=== PATIENT | male | born 1975 | race Caucasian/White ===

== ENCOUNTER → 2017-06-14 10:03 | Outpatient (REF) | payer BC, SELFPAY ==
[2017-06-14 14:27] LABS: Amphetamine/Metha Screen,Urine Negative ng/mL (<1000); Barbiturates Screen,Urine Negative ng/mL (<200); Benzodiazepines Screen,Urine Negative ng/mL (200); Cannabinoid Screen,Urine Negative ng/mL (<50); Cocaine Screen,Urine Positive ng/g (<300); Methadone Screen,Urine Negative ng/mL (<300); Opiate Screen,Urine Negative ng/mL (<300); Phencyclidine Screen,Urine Negative ng/mL (<25)
== END ==
LOC: LAB 10:03
PROVIDERS: Visit Provider Nurse Practitioner Family
DX: Z79.899 Other long term (current) drug therapy (principal)
CPT/HCPCS: 80305

== ENCOUNTER → 2017-08-15 10:49 | Outpatient (REF) | payer BC, SELFPAY ==
[2017-08-15 18:16] LABS: Amphetamine/Metha Screen,Urine Negative ng/mL (<1000); Barbiturates Screen,Urine Negative ng/mL (<200); Benzodiazepines Screen,Urine Negative ng/mL (200); Cannabinoid Screen,Urine Negative ng/mL (<50); Cocaine Screen,Urine Positive ng/g (<300); Methadone Screen,Urine Negative ng/mL (<300); Opiate Screen,Urine Negative ng/mL (<300); Phencyclidine Screen,Urine Negative ng/mL (<25)
== END ==
LOC: LAB 10:49
PROVIDERS: Visit Provider Nurse Practitioner Family
DX: Z79.899 Other long term (current) drug therapy (principal)
CPT/HCPCS: 80305

== ENCOUNTER → 2018-10-08 18:16 | Outpatient (CLI) | payer OTHER, SELFPAY ==
[2018-10-08 18:54] LABS: Basophils # 0.1 K/mm3 (0-0.2); Eosinophils # 0.8 K/mm3 (0.0-0.4); Eosinophils % 10.7 % (0.1-12.0); Hematocrit 42.1 % (42.0-52.0); Hemoglobin 14.6 g/dL (14.1-18.0); Lymphocytes # 3.6 K/mm3 (0.7-4.5); Lymphocytes % 50.2 % (10-50); Mean Corpuscular HGB Conc 34.7 g/dL (31.8-35.4); Mean Corpuscular Hemoglobin 29.1 pg (27.0-31.2); Mean Corpuscular Volume 83.8 fl (80-94); Mean Platelet Volume 6.8 fl (7.4-10.4); Monocytes # 0.4 K/mm3 (0.1-1.0); Monocytes % 5.2 % (1.7-9.3); Neutrophils # 2.4 K/mm3 (1.8-7.8); Neutrophils % 32.9 % (37.0-80.0); Platelet Count 279 K/mm3 (142-424); Red Blood Count 5.03 M/mm3 (4.60-6.20); Red Cell Distribution Width 14.1 % (11.5-17.5); White Blood Count 7.1 K/mm3 (4.8-10.8)
[2018-10-08 18:57] LABS: INR 1.01 (0.9-1.1); Prothrombin Time 10.5 seconds (9.4-11.8)
[2018-10-08 19:02] LABS: MANUAL DIFFERENTIAL MANUAL DIFFERENTIAL (MANUAL DIFF)
[2018-10-08 19:23] LABS: Alanine Aminotransferase 126 U/L (12-78); Albumin Level 3.9 gm/dL (3.4-5.0); Albumin/Globulin Ratio 1.1 (1.1-1.8); Alkaline Phosphatase 117 U/L (46-116); Anion Gap 13.7 mEq/L (5-15); Aspartate Amino Transferase 62 U/L (15-37); Bilirubin,Total 0.5 mg/dL (0.2-1.0); Blood Urea Nitrogen 9 mg/dL (7-18); Calcium 8.8 mg/dL (8.5-10.1); Carbon Dioxide 27 mmol/L (21.0-32.0); Chloride 103 mmol/L (98-107); Creatinine,Serum 0.83 mg/dL (0.70-1.30); Estimated Glomerular Filt Rate 100 ml/min (>60); GFR (African American) 121 ML/MIN (>60); Globulin 3.6 gm/dl (1.3-3.2); Glucose 115 mg/dL (74-106); Potassium 3.7 mmoL/L (3.5-5.1); Sodium 140 mmol/L (136-145); Total Protein,Serum 7.5 gm/dL (6.4-8.2)
[2018-10-08 19:30] LABS: Erythrocyte Sedimentation Rate 13 mm/hr (0-15)
[2018-10-08 20:55] LABS: C-Reactive Protein < 0.2 mg/L (0.0-0.9)
[2018-10-08 22:34] LABS: Anisocytosis 1+; Eosinophils % 8 % (0-3); Lymphocytes % 57 % (10-50); Monocytes % 1 % (2-9); Neutrophils % 32 % (42-76); Ovalocytes 1+; Platelet Estimate Normal; Total Cells Counted 100
[2018-10-10 07:27] LABS: Hep B Core Ab, Total Negative (Negative); Hepatitis B Surface Antigen Negative (Negative)
[2018-10-10 07:34] LABS: Hep A Ab, Total Negative (Negative); Hepatitis B Surf Ab Quant <3.1 mIU/mL (Immunity>9.9); Hepatitis C Antibody >11.0 s/co ratio (0.0-0.9)
[2018-10-10 18:44] LABS: HIV Screen 4th Generation wRfx Non Reactive (Non Reactive)
[2018-10-15 03:25] LABS: HCV Genotype Charge YES
== END ==
PROVIDERS: Visit Provider Emergency Medicine
DX: R53.83 Other fatigue (principal)
CPT/HCPCS: 36415; 80053; 85007; 85025; 85610; 85651; 86140; 86703; 86704; 86706; 86708; 87340; 87380; 87522; 87902; G0432

== ENCOUNTER → 2019-07-03 17:00 | Outpatient (CLI) | payer OTHER, SELFPAY ==
[2019-07-03 17:45] LABS: Basophils # 0.1 K/mm3 (0-0.2); Basophils % 0.7 % (0.1-2.0); Eosinophils # 0.8 K/mm3 (0.0-0.4); Eosinophils % 9.6 % (0.1-12.0); Hematocrit 46.5 % (42.0-52.0); Hemoglobin 15.1 g/dL (14.1-18.0); Lymphocytes # 3.3 K/mm3 (0.7-4.5); Lymphocytes % 39.2 % (10-50); Mean Corpuscular HGB Conc 32.6 g/dL (31.8-35.4); Mean Corpuscular Hemoglobin 29.7 pg (27.0-31.2); Mean Corpuscular Volume 91.3 fl (80-94); Mean Platelet Volume 9.3 fl (7.4-10.4); Monocytes # 0.5 K/mm3 (0.1-1.0); Monocytes % 5.8 % (1.7-9.3); Neutrophils # 3.8 K/mm3 (1.8-7.8); Neutrophils % 44.6 % (37.0-80.0); Platelet Count 265 K/mm3 (142-424); Red Blood Count 5.09 M/mm3 (4.60-6.20); Red Cell Distribution Width 13.5 % (11.5-17.5); White Blood Count 8.5 K/mm3 (4.8-10.8)
[2019-07-03 18:17] LABS: Chloride 101 mmol/L (98-107); Potassium 3.5 mmoL/L (3.5-5.1); Sodium 140 mmol/L (136-145)
[2019-07-03 18:19] LABS: Blood Urea Nitrogen 10 mg/dl (9-20); Estimated Glomerular Filt Rate 91 ml/min (>60); GFR (African American) 110 ML/MIN (>60)
[2019-07-03 18:20] LABS: Alanine Aminotransferase 80 U/L (12-78); Albumin Level 4.5 g/dl (3.5-5.0); Albumin/Globulin Ratio 1.3 (1.1-1.8); Alkaline Phosphatase 112 U/L (38-126); Anion Gap 14.5 mEq/L (5-15); Aspartate Amino Transferase 64 U/L (17-59); Bilirubin,Total 0.2 mg/dl (0.2-1.3); Calcium 9.5 mg/dl (8.4-10.2); Carbon Dioxide 28 mmol/L (22.0-30.0); Globulin 3.5 g/dL (1.3-3.2); Glucose 120 mg/dl (74-100)
[2019-07-12 17:49] LABS: HCV Genotype Charge YES
[2019-07-14 11:28] LABS: HIV Screen 4th Generation wRfx Non Reactive (Non Reactive); Hepatitis B Surface Antigen Negative (Negative)
[2019-07-14 11:29] LABS: Hep A Ab, IgM Negative (Negative); Hep A Ab, Total Negative (Negative); Hep B Core Ab, Total Negative (Negative); Hep B Surface Ab, Qual Non Reactive (.); Hepatitis C Genotype 3 (.)
== END ==
PROVIDERS: Visit Provider Emergency Medicine
DX: B19.20 Unspecified viral hepatitis C without hepatic coma (principal)
CPT/HCPCS: 80053; 85025; 86703; 86704; 86706; 86708; 87340; 87522; 87902; G0432

== ENCOUNTER → 2019-10-03 11:25 | Outpatient (CLI) | payer OTHER, SELFPAY ==
[2019-10-03 11:48] LABS: Basophils # 0.1 K/mm3 (0-0.2); Basophils % 1.6 % (0.1-2.0); Eosinophils # 0.4 K/mm3 (0.0-0.4); Eosinophils % 6.7 % (0.1-12.0); Hematocrit 41.8 % (42.0-52.0); Hemoglobin 14.2 g/dL (14.1-18.0); Lymphocytes # 2.4 K/mm3 (0.7-4.5); Lymphocytes % 36.8 % (10-50); Mean Corpuscular HGB Conc 34.1 g/dL (31.8-35.4); Mean Corpuscular Hemoglobin 30.8 pg (27.0-31.2); Mean Corpuscular Volume 90.4 fl (80-94); Mean Platelet Volume 7.5 fl (7.4-10.4); Monocytes # 0.3 K/mm3 (0.1-1.0); Monocytes % 4.5 % (1.7-9.3); Neutrophils # 3.2 K/mm3 (1.8-7.8); Neutrophils % 50.4 % (37.0-80.0); Platelet Count 246 K/mm3 (142-424); Red Blood Count 4.62 M/mm3 (4.60-6.20); Red Cell Distribution Width 14.2 % (11.5-17.5); White Blood Count 6.4 K/mm3 (4.8-10.8)
[2019-10-03 11:53] LABS: INR 0.98 (0.9-1.1); Prothrombin Time 10.2 seconds (9.4-11.8)
[2019-10-03 12:16] LABS: Chloride 107 mmol/L (98-107); Sodium 140 mmol/L (136-145)
[2019-10-03 12:17] LABS: Potassium 4.2 mmoL/L (3.5-5.1)
[2019-10-03 12:19] LABS: Alanine Aminotransferase 60 U/L (12-78); Albumin Level 4.2 g/dl (3.5-5.0); Albumin/Globulin Ratio 1.4 (1.1-1.8); Alkaline Phosphatase 102 U/L (38-126); Anion Gap 9.2 mEq/L (5-15); Aspartate Amino Transferase 64 U/L (17-59); Bilirubin,Total 0.5 mg/dl (0.2-1.3); Blood Urea Nitrogen 8 mg/dl (9-20); Calcium 9.2 mg/dl (8.4-10.2); Carbon Dioxide 28 mmol/L (22.0-30.0); Estimated Glomerular Filt Rate 91 ml/min (>60); GFR (African American) 110 ML/MIN (>60); Globulin 2.9 g/dL (1.3-3.2); Glucose 123 mg/dl (74-100); Total Protein,Serum 7.1 g/dl (6.3-8.2)
[2019-10-04 12:17] LABS: HIV Screen 4th Generation wRfx Non Reactive (Non Reactive)
[2019-10-11 15:08] LABS: HCV Genotype Charge YES; Hepatitis C Genotype 3 (.)
== END ==
PROVIDERS: Visit Provider Emergency Medicine
DX: B19.20 Unspecified viral hepatitis C without hepatic coma (principal)
CPT/HCPCS: 36415; 80053; 85025; 85610; 86703; 87522; 87902; G0432

== ENCOUNTER → 2019-12-21 09:40 | Outpatient (CLI) | payer OTHER, SELFPAY ==
--- NOTE | 2019-12-21 09:41 | CT_ITS ---
PROCEDURE: CT PELVIS W CON CLINICAL INDICATION: eval hernia Left inguinal hernia, pain COMPARISON: No exams were available for comparison TECHNIQUE: Axial images obtained with sagittal and coronal reformats. All CT scans at the facility use one or more dose reduction, viz: automated exposure control, ma/kV adjustment per patient size (including targeted exams where dose is matched to indication, i.e. head), or iterative reconstruction technique. FINDINGS: No pelvic mass or abnormal fluid collection is evident. No evidence abdominal wall hernia. No acute bony findings. No adenopathy. There are few small nodes in the inguinal region on both sides. IMPRESSION: Negative CT the pelvis Dictated b Gabe Phan MD 12/22/2019 09:19 Gabe Phan MD in [facility] 12/22/2019 09:19
== END ==
PROVIDERS: PCP Emergency Medicine; Visit Provider Surgery
DX: K40.90 Unilateral inguinal hernia, without obstruction or gangrene, not specified as recurrent (principal)
CPT/HCPCS: 72193; Q9967

== ENCOUNTER → 2020-01-08 11:10 | Outpatient (CLI) | payer OTHER, SELFPAY ==
--- NOTE | 2020-01-08 11:13 | US_ITS ---
PROCEDURE: US TESTICULAR CLINICAL INDICATION: Bilateral testicular pain COMPARISON: No exams were available for comparison FINDINGS: Right testicle measures 4 x 1.7 x 3 cm. Left testicle measures 3.8 x 2 x 2.8 cm. No mass or evident. There is bilateral testicular blood flow. No hydrocele. There is a small epididymal cyst in the upper hip this on the right at 6 x 4 mm. Contains a small septation. No varicocele. IMPRESSION: Small septated right epididymal cyst otherwise negative testicular ultrasound Dictated by: Gabe Phan MD 01/08/2020 14:01 Gabe Phan MD in [facility] 01/08/2020 14:01
== END ==
PROVIDERS: PCP Emergency Medicine; Visit Provider Emergency Medicine
DX: R10.31 Right lower quadrant pain (principal); R10.32 Left lower quadrant pain
CPT/HCPCS: 76870

== ENCOUNTER 2020-06-09 20:47 | Emergency (ER) | payer OTHER, SELFPAY ==
[2020-06-09 20:55] VITALS: BP 149/78; PULSE 90; RESP 16; TEMP 36.8; O2SAT 98; BMI 26.4
--- NOTE | 2020-06-09 21:01 | XR_ITS ---
PROCEDURE: XR CERVICAL SPINE 3V CLINICAL INDICATION: PAIN Neck pain and swelling COMPARISON: CT CT CERVICAL SPINE WO CON from 03/30/2019 FINDINGS: There are postsurgical changes present with an anterior bone plate at C4 through C7. Kyphosis is present at C4-C5. A tubular cage device is present in vertebral body at C5-C6 and C7. exuberant osteophyte noted and C3-C4 anteriorly. No malalignment and no significant change from the previous CT scan 03/30/2019. no prevertebral soft tissue swelling IMPRESSION: Postsurgical changes with kyphosis as described above. No malalignment or acute fracture apparent Dictated by: Gabe Phan MD 06/10/2020 05:56 Gabe Phan MD in [facility] 06/10/2020 05:56
[2020-06-09 21:06] VITALS: BP 149/74; PULSE 90; RESP 16; TEMP 36.8; O2SAT 98; BMI 25.7
--- NOTE | 2020-06-09 21:14 | HMH.EDUTC ---
[facility] [place] Condition [place] Dis[place]: Good Time of Disposition: :28 <Kelly Tan - Last Filed: 06/09/20 22:26> Condition on Discharge: Good <Dale Bentley - Last Filed: 06/10/20 00:53> Clinical Impression: Neck pain Disposition: Still a Patient Additional Instructions: Please take Flexeril as prescribed. Do not operate heavy machinery or drink alcohol taking this medicine. Use ice on affected area. Return immediately if any new or worsening symptoms. Prescriptions: Cyclobenzaprine HCl [Flexeril 10mg tablet] 5 mg PO TID PRN 30 Days #12 tab PRN Reason: neck pain Prescription Printed Referrals: Kingsley Aponte MD [Primary Care Provider] - Medical Decision Making - Abhay Inquiry Pt receiving controlled substance: No Abhay was queried for this patient: No <Kelly Tan - Last Filed: 06/09/20 22:26> - Lab Data Result diagrams: 06/09/20 23:00 06/09/20 23:00 <Dale Bentley - Last Filed: 06/10/20 00:53> Vital Signs: 06/09/20 20:55 06/09/20 21:06 06/09/20 23:00 Temperature 98.3 F 98.3 F Temperature Source Oral Oral Pulse Rate [Right] 90 90 88 Respiratory Rate 16 16 17 Blood Pressure [Left Arm] 149/78 H 149/74 H 142/71 H Blood Pressure Mean [Left Arm] 101 99 94 Blood Pressure Source [Left Arm] Automatic Cuff Automatic Cuff Automatic Cuff Blood Pressure Position [Left Arm] Sitting Sitting Supine 02 Sat by Pulse Oximetry 98 98 98 Oxygen Delivery Method Room Air Room Air Room Air - Lab Data Lab Results 06/09/20 23:00: WBC 7.6, RBC 5.47, Hgb 16.9, Hct 48.8, MCV 89.2, MCH 31.0, MCHC 34.7, RDW 13.7, Plt Count 255, MPV 7.3 L, Neut % (Auto) 50.1, Lymph % (Auto) 34.5, [place] % (Auto) 5.9, Eos % (Auto) 8.9, Baso % (Auto) 0.6, Neut # (Auto) 3.8, Lymph # (Auto) 2.6, [place] # (Auto) 0.5, Eos # (Auto) 0.7 H, Baso # (Auto) 0.0 06/09/20 23:00: Sodium 139, Potassium 3.9, Chloride 99, Carbon Dioxide 34 H, Anion Gap 9.9, BUN 9, Creatinine 0.90, Estimated Creat Clear 127, Estimated GFR 90, Est GFR ( Amer) 109, Glucose 110 H, Calcium 9.2 Orders (Tests/Meds): ED MEDICATIONS Discontinued Medications Generic Name Dose Route Start Last Admin Trade Name Frexiomy PRN Reason Stop Dose Admin Iopamidol 75 ml 06/10/20 00:38 06/09/20 23:45 Iopamidol-370 (76%);100ml Bottle IV 06/10/20 00:39 75 ml ONCE ONE Administration Sodium Chloride 10 ml 06/10/20 00:38 06/09/20 23:45 Sodium Chloride 0.9% 10ml Syr (Rad Only) IV 06/10/20 00:39 10 ml ONCE ONE Administration ORDERS Category Date Time Status CT cervical spine wo/w con Stat Cat Scan 06/09/20 22:28 Taken XR cervical spine 3V Stat Exams 06/09/20 21:01 Taken Medical Decision Narrative: Discussed with patient and recommended Toradol injection and muscle relaxer may help with pain and patient declined multiple times patient sitting on exam table talking with family Spoke with ER Physician Dr Salgado and he viewed xray and requested to have VRAD view and provide reading for xray awaiting xray reading Xray Vrad reading back, and discussed with Dr Salgado, After reading back for VRAD, patient is now requesting to be transferred to the ED for further treatment and evaluation, Discussed with Dr Salgado and he came to [facility] spoke with patient, patient transferred to the ED for CT scan and further evaluation, patient awaiting room assignment (Kelly Tan) CT with contrast obtained and demonstrates no abscess or any other bony injury/malalignment. Patient given Flexeril p.o. with improvement in pain. I do believe soft tissue injury is more than likely causing his pain. Patient prescribed Flexeril instructed not to operate heavy machinery or drink alcohol or take this medicine. He is discharged in stable condition with strict return precautions. Assessment: Acute on chronic neck pain Disposition: Home with follow-up (Dale Bentley) [facility] [place] - General Mode of Arrival: Ambulatory Source of Information: Patient Limitatio
--- NOTE | 2020-06-09 22:28 | CT_ITS ---
PROCEDURE: CT CERVICAL SPINE WO/W CON CLINICAL INDICATION: neck pain. previous surgery There has been previous extensive surgery from C4 C5 and C6 with kyphosis noted at C4-C5 with anterior bone plate at C4-C5 and C6 and a central longitudinal tubular cage device. There is good alignment. COMPARISON: CT CT CERVICAL SPINE WO CON from 03/30/2019 CR XR CERVICAL SPINE 3V from 06/09/2020 TECHNIQUE: Axial images obtained with sagittal and coronal reformats. All CT scans at the facility use one or more dose reduction, viz: automated exposure control, ma/kV adjustment per patient size (including targeted exams where dose is matched to indication, i.e. head), or iterative reconstruction technique. Axial spiral CT scanning performed of the cervical spine beginning at the base of the skull and continuing to the upper T-spine. 3-D multiplanar reconstruction with 3-D manipulation of volumetric data set in image rendering was completed by the radiologist and/or technologist with the supervision of the radiologist on independent workstation. FINDINGS: There has been previous surgery with anterior bone plate at C4, C5, C6, and C7. There is kyphosis at C4-C5 level. There is an anterior bone plate from C4-C7 with a tubular fixation device within the vertebral bodies along the inferior aspect of C4, and through C5-C6 and C7. This is similar compared to the previous exam. No acute fracture or dislocation is evident. Borderline narrowing of the canal is present at C6-C7 with bilateral foraminal narrowing at that level. Post enhanced images show no evidence of abnormal enhancement. Prominent anterior osteophyte is present at C3-C4 no evidence of osteomyelitis or paravertebral abscess. Scattered small nodes are present in the neck. No acute finding in the lung apices. Incidental note is made of mild mucosal thickening of the maxillary sinuses with a small air-fluid level in the left maxillary sinus as well as mucosal thickening of the ethmoid sinuses. IMPRESSION: 1. No acute finding. 2. Chronic and postsurgical changes as detailed above Dictated by: Gabe Phan MD 06/10/2020 09:20 Gabe Phan MD in [place] 06/10/2020 09:20
[2020-06-09 23:00] VITALS: BP 142/71; PULSE 88; RESP 17; O2SAT 98
[2020-06-09 23:22] LABS: Basophils % 0.6 % (0.1-2.0); Eosinophils # 0.7 K/mm3 (0.0-0.4); Eosinophils % 8.9 % (0.1-12.0); Hematocrit 48.8 % (42.0-52.0); Hemoglobin 16.9 g/dL (14.1-18.0); Lymphocytes # 2.6 K/mm3 (0.7-4.5); Lymphocytes % 34.5 % (10-50); Mean Corpuscular HGB Conc 34.7 g/dL (31.8-35.4); Mean Corpuscular Volume 89.2 fl (80-94); Mean Platelet Volume 7.3 fl (7.4-10.4); Monocytes # 0.5 K/mm3 (0.1-1.0); Monocytes % 5.9 % (1.7-9.3); Neutrophils # 3.8 K/mm3 (1.8-7.8); Neutrophils % 50.1 % (37.0-80.0); Platelet Count 255 K/mm3 (142-424); Red Blood Count 5.47 M/mm3 (4.60-6.20); Red Cell Distribution Width 13.7 % (11.5-17.5); White Blood Count 7.6 K/mm3 (4.8-10.8)
[2020-06-09 23:27] LABS: Chloride 99 mmol/L (98-107)
[2020-06-09 23:28] LABS: Potassium 3.9 mmoL/L (3.5-5.1); Sodium 139 mmol/L (136-145)
[2020-06-09 23:30] LABS: Blood Urea Nitrogen 9 mg/dl (9-20); Creatinine Clearance Estimated 127 mL/min (50-200); Estimated Glomerular Filt Rate 90 ml/min (>60); GFR (African American) 109 ML/MIN (>60)
[2020-06-09 23:31] LABS: Anion Gap 9.9 mEq/L (5-15); Calcium 9.2 mg/dl (8.4-10.2); Carbon Dioxide 34 mmol/L (22.0-30.0); Glucose 110 mg/dl (74-100)
[2020-06-10 00:55] VITALS: BP 150/72; PULSE 81; RESP 16; TEMP 36.7; O2SAT 98
== END 2020-06-10 00:57 | disposition still patient (30) ==
LOC: UTC 21:03 → ER 22:39
PROVIDERS: Emergency Provider Emergency Medicine; PCP Emergency Medicine
DX: M54.2 Cervicalgia (principal); F41.8 Other specified anxiety disorders; I10 Essential (primary) hypertension; F17.210 Nicotine dependence, cigarettes, uncomplicated; Z79.899 Other long term (current) drug therapy
CPT/HCPCS: 72040; 72127; 80048; 85025; 99282; Q9967

== ENCOUNTER → 2020-06-24 17:43 | Outpatient (CLI) | payer OTHER, SELFPAY ==
[2020-06-24 18:25] LABS: Amphetamine/Metha Screen,Urine Negative ng/ml (<1000)
[2020-06-24 18:26] LABS: Barbiturates Screen,Urine Negative ng/ml (<200); Benzodiazepines Screen,Urine Negative ng/ml (<200)
[2020-06-24 18:27] LABS: Cannabinoid Screen,Urine Negative ng/ml (<50); Cocaine Screen,Urine Negative ng/ml (<300)
[2020-06-24 18:28] LABS: Methadone Screen,Urine Negative ng/ml (<300)
[2020-06-24 18:29] LABS: Opiate Screen,Urine Negative ng/ml (<300)
[2020-06-24 18:30] LABS: Phencyclidine Screen,Urine Negative ng/ml (<25)
== END ==
PROVIDERS: Visit Provider Emergency Medicine
DX: Z79.899 Other long term (current) drug therapy (principal)
CPT/HCPCS: 80305

== ENCOUNTER → 2020-09-20 16:39 | Outpatient (CLI) | payer OTHER, SELFPAY ==
[2020-09-20 18:23] LABS: Amphetamine/Metha Screen,Urine Positive ng/ml (<1000); Barbiturates Screen,Urine Negative ng/ml (<200)
[2020-09-20 18:24] LABS: Benzodiazepines Screen,Urine Negative ng/ml (<200)
[2020-09-20 18:25] LABS: Cannabinoid Screen,Urine Negative ng/ml (<50); Cocaine Screen,Urine Negative ng/ml (<300)
[2020-09-20 18:26] LABS: Methadone Screen,Urine Negative ng/ml (<300); Opiate Screen,Urine Negative ng/ml (<300)
[2020-09-20 18:27] LABS: Phencyclidine Screen,Urine Negative ng/ml (<25)
== END ==
PROVIDERS: Visit Provider Emergency Medicine
DX: Z79.899 Other long term (current) drug therapy (principal)
CPT/HCPCS: 80305

== ENCOUNTER → 2020-11-07 14:05 | Outpatient (CLI) | payer OTHER, SELFPAY ==
[2020-11-07 17:23] LABS: Amphetamine/Metha Screen,Urine Negative ng/ml (<1000)
[2020-11-07 17:24] LABS: Barbiturates Screen,Urine Negative ng/ml (<200); Benzodiazepines Screen,Urine Negative ng/ml (<200)
[2020-11-07 17:25] LABS: Cannabinoid Screen,Urine Negative ng/ml (<50); Cocaine Screen,Urine Negative ng/ml (<300)
[2020-11-07 17:26] LABS: Methadone Screen,Urine Negative ng/ml (<300)
[2020-11-07 17:27] LABS: Opiate Screen,Urine Negative ng/ml (<300); Phencyclidine Screen,Urine Negative ng/ml (<25)
== END ==
PROVIDERS: Visit Provider Emergency Medicine
DX: Z79.899 Other long term (current) drug therapy (principal)
CPT/HCPCS: 80305

== ENCOUNTER → 2021-02-06 17:52 | Outpatient (CLI) | payer OTHER, SELFPAY ==
[2021-02-06 19:41] LABS: Amphetamine/Metha Screen,Urine Negative ng/ml (<1000)
[2021-02-06 19:42] LABS: Barbiturates Screen,Urine Negative ng/ml (<200)
[2021-02-06 19:44] LABS: Benzodiazepines Screen,Urine Negative ng/ml (<200); Cannabinoid Screen,Urine Negative ng/ml (<50)
[2021-02-06 19:45] LABS: Cocaine Screen,Urine Negative ng/ml (<300); Methadone Screen,Urine Negative ng/ml (<300)
[2021-02-06 19:46] LABS: Opiate Screen,Urine Negative ng/ml (<300)
[2021-02-06 19:47] LABS: Phencyclidine Screen,Urine Negative ng/ml (<25)
== END ==
PROVIDERS: Visit Provider Emergency Medicine
DX: Z79.899 Other long term (current) drug therapy (principal)
CPT/HCPCS: 80305

== ENCOUNTER → 2022-06-01 14:19 | Outpatient (CLI) | payer OTHER, SELFPAY ==
--- NOTE | 2022-06-01 14:20 | CA_ITS ---
APPROVED REPORT EXAM: Comprehensive 2D, Doppler, and color-flow Echocardiogram Residential Counselor: Renetta Gallego RVT Ht: 6 ft 0 in Wt: 188lbs BSA: 2.08 BP: 145/94 mmHg Indications: CP,ABN EKG,DIZZINESS,SMOKER 2D Dimensions LVOT 2.02 cm (M/F) 1.5-2.5 LA Volume 35.00 mL LA Volume Index 16.83 mL/m2 (M/F) 16-34 M-Mode Dimensions RVDd 2.51 cm (0.9-2.6) LA Diam 4.10 cm (1.9-4.0) LVDd 4.45 cm (3.5-5.7) Ao Diam 3.39 cm (2.0-3.7) LVDs 2.70 cm (3.5-5.7) IVSd 0.57 cm (0.6-1.1) PWd 0.68 cm (0.6-1.1) EF (Teich) 70.00% FS 39.30% EDV (Teich) 90.10 mL TAPSE 2.87 (<1.7) ESV (Teich) 27.00 mL LV Diastology E Decel Time 150.00 (160-240 msec) E/A Ratio 1.4 MED E' 8.60 (< 7 cm/sec) E'/MED E' Ratio 8.08 (>14) LAT E' 12.40 (<10 cm/sec) E/LAT E' Ratio 5.60 (>14) Aortic Valve AO Peak GR. 5.80 mmHg Mitral Valve MV E Max Yunior. 69.00 (40-130 cm/s) MV A Velocity 50.00 (40-130 cm/s) E/A Ratio 1.39 MV Decel. Time 150.00 (160-240 ms) MV PHT 44.00 ms Pulmonary Valve PV Peak Velocity 85.00 (50-150 cm/s) Tricuspid Valve TR P. Velocity 156.00 cm/s RAP Estimate 10.00 mmHg RVSP 19.70 mmHg Left Ventricle Left atrium is mildly enlarged, left ventricle is normal size, mild concentric left ventricular hypertrophy, estimated ejection fraction 55% with no regional wall motion abnormality, diastolic parameters are inconclusive. Right Ventricle Right atrium and right ventricle are mildly enlarged with normal contractility. Aortic Valve Aortic valve is minimally thickened and fibrosed there is no aortic stenosis aortic insufficiency. Mitral Valve Mitral valve is grossly normal, there is trace mitral regurgitation. Tricuspid Valve Tricuspid valve grossly normal, there is trace tricuspid regurgitation, tricuspid regurgitation jet velocity is inadequate for calculation of the right ventricular systolic pressure. Pulmonic Valve Pulmonic valve is poorly visualized. Great Vessels Aortic root is normal size. Inferior vena cava is normal size with normal inspiratory collapse. Pericardium No significant pericardial effusion noted. Conclusion 1. Mild biatrial enlargement, normal left ventricular size, mild concentric left ventricular hypertrophy, estimated ejection fraction 55% with no regional wall motion abnormality, diastolic parameters are inconclusive. 2. Trace mitral and tricuspid regurgitation. 3. No significant pericardial effusion. 4. Inferior vena cava is normal size with normal inspiratory collapse. Electronically signed by : Chao Velez MD 06/01/2022 16:44:00
--- NOTE | 2022-06-01 15:01 | CA_ITS ---
APPROVED REPORT Exam: Exercise Treadmill Technologist: Hilary Villanueva, Ht: 6 ft 0 in Wt: 188 lbs BSA: 2.08 m2 HR: 59 bpm BP: 139/80 mmHg Medical History Medications: Omeprazole,,,,, Gabapentin,,,,, Suboxone,,,,, CetIRIZINE,,,,, Metoprolol Succinate ER,,,,, Stress Test Details Test: Mk HR Resting HR: 64 bpm Max Heart Rate (APMHR): 171 bpm Max HR Achieved: 122 bpm Target HR (85% APMHR): 145 bpm % of APMHR: 71 Recovery HR: 73 bpm BP Resting BP: 133/91 mmHg Max BP: 162/90 mmHg Recovery BP: 132.0/83.0 mmHg ECG Resting ECG: SR Clinical Exercise duration: 09:29 min Highest Stage Achieved: Exercise capacity: 10.1 METs Stress ECG Conclusion Max HR: 122 Test stopped due to: SOA & fatigue Symptoms: SOA w/ peak exercise. No chest pain Arrhythmias/Ectopy: none Resting electrocardiogram shows sinus rhythm, with exercise there is less than 1.[address] segment depression noted from the baseline EKG. The EKG portion of the exercise treadmill stress test is nondiagnostic as patient did not achieve the target heart rate, however a 10.1 METs of workload there was no ischemic ST-T changes seen. Test Summary REST . . . . . . . Sitting REST . . . . . . . Standing REST . . . . . . . Sitting REST . . . . . . . Standing REST 09:24 0.0 0.0 64 . 133/ 91 . . Stage 1 01:00 10.0 1.7 87 . . . . Stage 1 02:00 10.0 1.7 93 . . . . Stage 1 03:00 10.0 1.7 93 . 139/ 78 . . Stage 2 01:00 12.0 2.5 102 . . . . Stage 2 02:00 12.0 2.5 103 . . . . Stage 2 03:00 12.0 2.5 107 . 160/ 82 . . Stage 3 01:00 14.0 3.4 112 . . . . Stage 3 02:00 14.0 3.4 115 . . . . Stage 3 03:00 14.0 3.4 116 . 162/ 90 . . Stage 4 00:29 16.0 4.2 122 . . . Stop exercise at 09:29 RECOVERY 01:00 0.0 0.0 97 . . . . RECOVERY 02:00 0.0 0.0 77 . . . . RECOVERY 03:00 0.0 0.0 74 . 162/ 93 . . RECOVERY 04:00 0.0 0.0 71 . 159/ 92 . . RECOVERY 04:48 0.0 0.0 72 . 132/ 83 . . Electronically signed by : Chao Velez MD 06/01/2022 17:27:28
== END ==
PROVIDERS: PCP Emergency Medicine; Visit Provider Physician Assistant
DX: R06.00 Dyspnea, unspecified (principal); R07.9 Chest pain, unspecified; R42 Dizziness and giddiness; R94.31 Abnormal electrocardiogram [ECG] [EKG]
CPT/HCPCS: 93017; 93306

== ENCOUNTER → 2022-08-09 12:18 | Day surgery (SDC) | payer OTHER, SELFPAY ==
[2022-08-06 09:49] VITALS: BMI 25.7
[2022-08-09 12:59] VITALS: BP 129/78; PULSE 77; RESP 18; TEMP 36.6; O2SAT 98
[2022-08-09 13:56] VITALS: O2SAT 98
--- NOTE | 2022-08-09 14:09 | HMH.SCOPE ---
Procedure: Date: 08/09/22 Patient Date of :: 1975 Procedure Performed:: Screening Colonoscopy Indications:: Family history of colon cancer Performing Provider:: Thomas Caro MD Referring Provider:: Kingsley Aponte MD Sedation:: Propofol Procedure:: After placing the patient in the left lateral decubitus position, the colonoscopy was gently inserted into the rectum and under direct visualization advanced to the cecum which was identified by transillumination in the right lower quadrant, identification of the ileocecal valve, appendiceal orifice, and cecal strap. Color, texture, mucosa, and anatomy of the colon were carefully examined with the scope. Findings:: Anal canal: normal Rectum: normal Sigmoid colon: normal without polyps or inflammatory changes Descending colon: normal without polyps or inflammatory changes Splenic flexure: normal Transverse colon: normal without polyps or inflammatory changes Hepatic flexure: normal Ascending colon: normal without polyps or inflammatory changes Cecum: normal Terminal ileum: not visualized Impression: Normal colonoscopy Recommendations:: Follow up examination in about FIVE years or so, sooner if clinically indicated in view of family history. Complications:: None Estimated blood obtained (mL): 0
[2022-08-09 14:15] VITALS: BP 92/68; PULSE 84; RESP 17; O2SAT 99
[2022-08-09 14:25] VITALS: BP 136/84; PULSE 74; RESP 18; O2SAT 98
[2022-08-09 14:45] VITALS: BP 132/74; PULSE 76; RESP 17; O2SAT 99
--- NOTE | 2022-08-09 15:14 | P.PN_ITS ---
[facility] Disclaimer: The information contained in this section may have been updated after the patient was seen, as this information can be updated by other users. Medical History Abnormal electrocardiogram [ECG] [EKG] Chest pain Dizziness Dyspnea Low back pain Refill clinic medication management patient Surgical History (Updated 08/06/22 @ 09:47 by Norma Braden RN) Hx of neck surgery Family History (Updated 08/06/22 @ 09:47 by Norma Braden RN) Other Family history of cancer Family history of diabetes mellitus type II Family history of hypertension Family history of stroke Social History (Updated 08/06/22 @ 09:47 by Norma Braden RN) Smoking Status: Current every day smoker tobacco type: cigarettes packs per day: 1 pack-years: 33 alcohol intake: current substance use type: former substance user and opiates current occupational status: employed Travel in the last 8 weeks: None household members: spouse and family housing: house marital status: education level: high school caffeine: Yes special guerita needs: No agree to transfusion: No do you feel safe at home: Yes victim of physical abuse: No victim of emotional abuse: No victim of sexual abuse: No would you like helpful sources: No [facility] Anesthesia Checklist Patient Identification Patient Identification: Arm Band and Family Structural Data Admitted From: Home Planned Operative Procedure/s: COLONOSCOPY Consent for Planned Operative Procedure(s) Verified: Yes Verified Documents: Surgical Consent and History and Physical NPO Status Verified Time NPO: 00:00 Additional verifications Patient : No Anesthesia Reactions: No Hx Blood Transfusions: No Cephalosporin Allergy: No Previous Colonoscopy: No Airway Assessment C-Spine Mobility Assessed: Yes TMJ Mobility Assessed: Yes Dentition: Edentulous Neurological Assessment Level of Consciousness: Awake, Alert, Appropriate and Follows Commands Hx Seizures: No Numbness or tingling in extremities: No Anesthesia Plan Anesthesia Risk discussed: Yes ASA Class: II Anesthesia Type: MAC Preoperative Comments Pre-Operative Comments: Hypertension. Hep C. Screening. On Seboxin.
== END | disposition home or self-care (01) ==
PROVIDERS: PCP Emergency Medicine; Visit Provider Internal Medicine Gastroenterology
PROC: 0DJD8ZZ Inspection of Lower Intestinal Tract, Via Natural or Artificial Opening Endoscopic (ICD-10-PCS; CPT 45378; principal; 2022-08-09 13:30)
DX: Z12.11 Encounter for screening for malignant neoplasm of colon (principal); Z80.0 Family history of malignant neoplasm of digestive organs; F17.210 Nicotine dependence, cigarettes, uncomplicated; Z79.899 Other long term (current) drug therapy
CPT/HCPCS: 45378

== ENCOUNTER → 2023-01-30 10:14 | Outpatient (CLI) | payer OTHER, SELFPAY ==
[2023-01-09 17:53] LABS: Amphetamine/Metha Screen,Urine Negative ng/ml (<1000); Barbiturates Screen,Urine Negative ng/ml (<200)
[2023-01-09 17:54] LABS: Benzodiazepines Screen,Urine Negative ng/ml (<200)
[2023-01-09 17:55] LABS: Cannabinoid Screen,Urine Negative ng/ml (<50); Cocaine Screen,Urine Negative ng/ml (<300)
[2023-01-09 17:56] LABS: Methadone Screen,Urine Negative ng/ml (<300)
[2023-01-09 17:57] LABS: Phencyclidine Screen,Urine Negative ng/ml (<25)
[2023-01-09 18:00] LABS: Opiate Screen,Urine Negative ng/ml (<300)
== END ==
PROVIDERS: PCP Emergency Medicine; Visit Provider Emergency Medicine
DX: Z79.899 Other long term (current) drug therapy (principal)
CPT/HCPCS: 80305

== ENCOUNTER → 2023-04-02 07:34 | Outpatient (CLI) | payer OTHER, SELFPAY ==
[2023-04-02 22:14] LABS: Amphetamine/Metha Screen,Urine Negative ng/ml (<1000)
[2023-04-02 22:15] LABS: Barbiturates Screen,Urine Negative ng/ml (<200)
[2023-04-02 22:16] LABS: Benzodiazepines Screen,Urine Negative ng/ml (<200); Cannabinoid Screen,Urine Negative ng/ml (<50)
[2023-04-02 22:17] LABS: Cocaine Screen,Urine Negative ng/ml (<300)
[2023-04-02 22:18] LABS: Methadone Screen,Urine Negative ng/ml (<300); Opiate Screen,Urine Negative ng/ml (<300)
[2023-04-02 22:19] LABS: Phencyclidine Screen,Urine Negative ng/ml (<25)
== END ==
PROVIDERS: PCP Emergency Medicine; Visit Provider Emergency Medicine
DX: G62.9 Polyneuropathy, unspecified (principal); Z79.899 Other long term (current) drug therapy
CPT/HCPCS: 80305

== ENCOUNTER 2023-07-08 12:06 | Outpatient (CLI) | payer OTHER, SELFPAY ==
[2023-07-08 12:36] LABS: Hemoglobin A1C 5.3 % (4.0-6.0)
[2023-07-08 12:41] LABS: Basophils % 0.3 % (0.1-2.0); Eosinophils # 0.4 K/mm3 (0.0-0.4); Eosinophils % 5.8 % (0.1-12.0); Hematocrit 43.7 % (42.0-52.0); Hemoglobin 14.4 g/dL (14.1-18.0); Mean Corpuscular HGB Conc 32.9 g/dL (31.8-35.4); Mean Corpuscular Volume 94.2 fl (80-94); Mean Platelet Volume 8.2 fl (7.4-10.4); Monocytes # 0.4 K/mm3 (0.1-1.0); Monocytes % 6.6 % (1.7-9.3); Neutrophils # 3.7 K/mm3 (1.8-7.8); Neutrophils % 56.3 % (37.0-80.0); Platelet Count 208 K/mm3 (142-424); Red Blood Count 4.64 M/mm3 (4.60-6.20); Red Cell Distribution Width 13.5 % (11.5-17.5); White Blood Count 6.5 K/mm3 (4.8-10.8)
[2023-07-08 13:02] LABS: Alanine Aminotransferase 49 U/L (12-78); Albumin/Globulin Ratio 1.4 (1.1-1.8); Alkaline Phosphatase 122 U/L (38-126); Anion Gap 10.8 mEq/L (5-15); Aspartate Amino Transferase 45 U/L (17-59); Bilirubin,Total 0.4 mg/dl (0.2-1.3); Blood Urea Nitrogen 8 mg/dl (9-20); Carbon Dioxide 26 mmol/L (22.0-30.0); Chloride 107 mmol/L (98-107); Chol/HDL Ratio 4.3 (1-3.5); Cholesterol 163 mg/dl (140-200); Estimated Glomerular Filt Rate 119 ml/min (>60); GFR (African American) 144 ML/MIN (>60); Globulin 2.9 g/dL (1.3-3.2); Glucose 105 mg/dl (74-100); HDL Cholesterol 38 mg/dl (40-60); Potassium 3.8 mmoL/L (3.5-5.1); Sodium 140 mmol/L (136-145); Total Protein,Serum 6.9 g/dl (6.3-8.2); Triglycerides 127 mg/dl (30-150); VLDL Cholesterol 25 mg/dL (0-40)
[2023-07-08 13:15] LABS: Direct LDL Cholesterol 84.01 mg/dL (100-129)
[2023-07-08 13:33] LABS: Thyroid Stimulating Hormone 1.78 uIU/mL (0.465-4.68)
[2023-07-08 13:52] LABS: Vitamin B12 688 pg/mL (239-931)
== END 2023-07-08 23:59 ==
LOC: LAB.DROPOF 12:07
PROVIDERS: PCP Family Medicine; Visit Provider Family Medicine
DX: G62.89 Other specified polyneuropathies (principal); B19.20 Unspecified viral hepatitis C without hepatic coma; E66.3 Overweight; Z68.25 Body mass index [BMI] 25.0-25.9, adult; Z79.899 Other long term (current) drug therapy
CPT/HCPCS: 80053; 80061; 82306; 82607; 83036; 84443; 85025

== ENCOUNTER 2023-12-05 14:56 | Emergency (ER) | payer BC, SELFPAY ==
[2023-12-05] VITALS (8 sets, daily range): BP systolic 118–199; BP diastolic 76–114; PULSE 63–92; RESP 18–19; TEMP 36.6–36.7; O2SAT 95–99; BMI 26.4
--- NOTE | 2023-12-05 15:04 | ECG_ITS ---
APPROVED REPORT Exam: Resting ECG HR:62 bpm ECG Measurements Heart Rate 62 AXES IL 208 P 73 QRSd 87 QRS 25 QT 435 T 56 QTc 441 Conclusion SINUS RHYTHM POSSIBLE RIGHT VENTRICULAR CONDUCTION DELAY [RSR (QR) IN V1/V2] Electronically signed by : SALOME LOBO, 12/05/2023 22:08:12
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
[2023-12-05 15:10] LABS: Coronavirus 19, PCR Not Detected (NotDetected); Influenza A, PCR Not Detected (NotDetected); Influenza B, PCR Not Detected (NotDetected)
--- NOTE | 2023-12-05 15:11 | CT_ITS ---
FINAL REPORT TECHNIQUE: Thin section axial CT with contrast with multiplanar reconstruction This study was performed with techniques to keep radiation doses as low as reasonably achievable, (ALARA). Individualized dose reduction techniques using automated exposure control or adjustment of mA and/or kV according to the patient''s size were employed. CLINICAL HISTORY: Cough and shortness of breath x2 weeks COMPARISON: None FINDINGS: Pulmonary vessels enhance in normal fashion without evidence of embolism. Thoracic aorta shows no dissection or aneurysm. Fine nodular densities throughout the greater part of the lower lobes is most suggestive of bronchiolitis. There is no significant pleural effusion. There is no significant pericardial effusion. There is mild right hilar adenopathy. Minimal prevascular adenopathy is noted. Limited images of the upper abdomen demonstrate fatty infiltration of the liver. IMPRESSION: No evidence of pulmonary embolism. Extensive bronchopneumonia/bronchiolitis. Recommend CT follow-up in 2-3 months. Reviewed, Interpreted and Dictated by Sandeep Guzman MD Transcribed by Cyndi Mosqueda Authenticated and . [facility]
--- NOTE | 2023-12-05 15:16 | PC.NURSE ---
NOTIFIED RESP OF VBG AMD GREEN TUBE WAS IN LAB
[2023-12-05 15:22] LABS: VBG Base Excess 3.8 mmol/L (-2.4-2.3); VBG HCO3 28.8 mmol/L (23-30); VBG Oxygen Saturation 82.8 % (50-70); VBG PCO2 49.4 mmol/L (35-51); VBG PH 7.38 mmol/L (7.31-7.41); VBG PO2 47.8 mmol/L (28-40); VBG Total CO2 30.3 mmol/L (23-27)
[2023-12-05 15:27] LABS: Lactate Venous 2.5 mmol/L (0.4-2.0)
[2023-12-05 15:28] LABS: Basophils # 0.1 K/mm3 (0-0.2); Basophils % 0.6 % (0.1-2.0); Eosinophils # 0.2 K/mm3 (0.0-0.4); Hematocrit 46.8 % (42.0-52.0); Hemoglobin 15.7 g/dL (14.1-18.0); Lymphocytes # 1.5 K/mm3 (0.7-4.5); Lymphocytes % 15.2 % (10-50); Mean Corpuscular HGB Conc 33.7 g/dL (31.8-35.4); Mean Corpuscular Hemoglobin 31.4 pg (27.0-31.2); Mean Corpuscular Volume 93.3 fl (80-94); Mean Platelet Volume 7.7 fl (7.4-10.4); Monocytes # 0.6 K/mm3 (0.1-1.0); Monocytes % 6.5 % (1.7-9.3); Neutrophils # 7.2 K/mm3 (1.8-7.8); Neutrophils % 75.7 % (37.0-80.0); Platelet Count 224 K/mm3 (142-424); Red Blood Count 5.01 M/mm3 (4.60-6.20); Red Cell Distribution Width 15.1 % (11.5-17.5); White Blood Count 9.5 K/mm3 (4.8-10.8)
[2023-12-05] MEDS: ACETAMINOPHEN 1,000MG/100ML VIAL 1000 MG IV (15:33)
[2023-12-05 15:34] LABS: Alanine Aminotransferase 45 U/L (12-78); Albumin/Globulin Ratio 1.1 (1.1-1.8); Alkaline Phosphatase 118 U/L (38-126); Anion Gap 9.3 mEq/L (5-15); Aspartate Amino Transferase 53 U/L (17-59); Bilirubin,Total 0.8 mg/dl (0.2-1.3); Blood Urea Nitrogen 4 mg/dl (9-20); Carbon Dioxide 30 mmol/L (22.0-30.0); Chloride 104 mmol/L (98-107); Creatinine Clearance Estimated 158 mL/min (50-200); Estimated Glomerular Filt Rate 119 ml/min (>60); GFR (African American) 144 ML/MIN (>60); Globulin 3.7 g/dL (1.3-3.2); Glucose 135 mg/dl (74-100); Magnesium 2.1 mg/dl (1.6-2.3); Potassium 3.3 mmoL/L (3.5-5.1); Sodium 140 mmol/L (136-145); Total Protein,Serum 7.7 g/dl (6.3-8.2)
[2023-12-05] MEDS: KETOROLAC 30MG/ML VIAL 15 MG IV (15:34)
[2023-12-05] MEDS: DEXAMETHASONE 4MG/ML 5ML MDV 10 MG IV (15:34)
[2023-12-05] MEDS: IPRATROPIUM/ALBUTEROL 3 ML NEB IH (15:34)
[2023-12-05 15:35] LABS: Prothrombin Time 10.2 seconds (10.1-12.5)
[2023-12-05 15:47] LABS: Troponin I < 0.01 ng/ml (0.00-0.034)
[2023-12-05 15:49] LABS: NT Pro Brain Natriuretic Pep. 292 pg/mL (0-125)
--- NOTE | 2023-12-05 15:52 | PC.NURSE ---
PT GONE TO CT
[2023-12-05] MEDS: IOPAMIDOL-370 (76%);100ML BOTTLE 70 ML IV (16:02)
[2023-12-05] MEDS: 0.9 % SODIUM CHLORIDE 50 ML VIAL IV (16:02)
[2023-12-05] MEDS: SODIUM CHLORIDE 0.9% 10ML SYR (RAD ONLY) 10 ML IV (16:02)
[2023-12-05] MEDS: IPRATROPIUM/ALBUTEROL 3 ML NEB 6 ML IH (16:54)
[2023-12-05] MEDS: DOXYCYCLINE HYCL 100 MG TABLET PO (17:05)
[2023-12-05 19:28] LABS: Reflex Lactic Add Lactic Reflex
== END 2023-12-05 17:15 | disposition home or self-care (01) ==
PROVIDERS: Physician Assistant; Emergency Provider Emergency Medicine; PCP Family Medicine
DX: J20.9 Acute bronchitis, unspecified (principal); R06.02 Shortness of breath; F17.210 Nicotine dependence, cigarettes, uncomplicated
CPT/HCPCS: 71275; 80053; 82803; 83735; 83880; 84145; 84484; 85025; 85610; 87040; 87636; 93005; 96374; 96375; 99285; J0131; J1885; J7620; Q9967

== ENCOUNTER 2024-10-02 13:46 | Outpatient (CLI) | payer BC, SELFPAY ==
[2024-10-02 13:51] LABS: Hep A Ab, IgM ND
[2024-10-02 15:17] LABS: Basophils % 0.9 % (0.1-2.0); Eosinophils # 0.3 Kmm3 (0.0-0.4); Eosinophils % 5.4 % (0.1-12.0); Hematocrit 42.2 % (42.0-52.0); Hemoglobin 14.9 g/dL (14.1-18.0); Immature Granulocytes # 0.02 10^3uL; Immature Granulocytes % 0.4 %; Lymphocytes # 1.5 K/mm3 (0.7-4.5); Mean Corpuscular HGB Conc 35.3 g/dL (31.8-35.4); Mean Corpuscular Hemoglobin 33.2 pg (27.0-31.2); Mean Platelet Volume 9.9 fl (7.4-10.4); Monocytes # 0.4 K/mm3 (0.1-1.0); Monocytes % 9.4 % (1.7-9.3); Neutrophils # 2.4 K/mm3 (1.8-7.8); Neutrophils % 51.9 % (37.0-80.0); Nucleated Red Blood Cells # 0 10^3/uL; Nucleated Red Blood Cells % 0 %; Platelet Count 138 K/mm3 (142-424); Red Blood Count 4.49 M/mm3 (4.60-6.20); Red Cell Distribution Width 11.6 % (11.5-17.5); Red Cell Distribution Width-SD 40.4 fL; White Blood Count 4.7 K/mm3 (4.8-10.8)
[2024-10-02 15:22] LABS: Albumin Level 4.1 g/dl (3.5-5.0); Chloride 106 mmol/L (98-107); Potassium 3.2 mmoL/L (3.5-5.1); Sodium 142 mmol/L (136-145)
[2024-10-02 15:24] LABS: Blood Urea Nitrogen 3 mg/dl (9-20); Estimated Glomerular Filt Rate 175 ml/min (>60); GFR (African American) 212 ML/MIN (>60)
[2024-10-02 15:25] LABS: Alanine Aminotransferase 176 U/L (12-78); Albumin/Globulin Ratio 1.1 (1.1-1.8); Alkaline Phosphatase 146 U/L (38-126); Anion Gap 13.2 mEq/L (5-15); Aspartate Amino Transferase 603 U/L (17-59); Bilirubin,Total 0.8 mg/dl (0.2-1.3); Calcium 8.9 mg/dl (8.4-10.2); Carbon Dioxide 26 mmol/L (22.0-30.0); Globulin 3.9 g/dL (1.3-3.2); Glucose 134 mg/dl (74-100)
[2024-10-02 15:26] LABS: INR 1.01 (0.9-1.1); Prothrombin Time 11.2 seconds (10.1-12.5)
[2024-10-02 16:29] LABS: 25-OH Vitamin D, Total 13.9 ng/mL (30-100)
[2024-10-03 06:29] LABS: Hep A Ab, Total Negative (Negative); Hep B Core Ab, Total Negative (Negative); Hep B Surface Ab, Qual Non Reactive (.); Hepatitis B Surface Antigen Negative (Negative)
[2024-10-07 10:12] LABS: Hepatitis C Genotype 3 (.)
== END 2024-10-02 23:59 | disposition home or self-care (01) ==
PROVIDERS: PCP Family Medicine; Visit Provider Family Medicine
DX: G62.9 Polyneuropathy, unspecified (principal); B19.20 Unspecified viral hepatitis C without hepatic coma; Z11.59 Encounter for screening for other viral diseases
CPT/HCPCS: 36415; 80053; 82306; 85025; 85610; 86704; 86706; 86708; 87340; 87902

== ENCOUNTER 2025-03-24 11:25 | Outpatient (CLI) | payer BC, SELFPAY ==
[2025-03-24 15:14] LABS: Hematocrit 44.7 % (42.0-52.0); Hemoglobin 15.6 g/dL (14.1-18.0); Immature Granulocytes % 0.2 %; Mean Corpuscular HGB Conc 34.9 g/dL (31.8-35.4); Mean Corpuscular Hemoglobin 32.8 pg (27.0-31.2); Mean Corpuscular Volume 94.1 fl (80-94); Nucleated Red Blood Cells % 0 %; Platelet Count 109 K/mm3 (142-424); Red Blood Count 4.75 M/mm3 (4.60-6.20); Red Cell Distribution Width-SD 39.8 fL; White Blood Count 5.9 K/mm3 (4.8-10.8)
[2025-03-24 15:54] LABS: Alanine Aminotransferase 73 U/L (12-78); Albumin Level 4.5 g/dl (3.5-5.0); Albumin/Globulin Ratio 1.0 (1.1-1.8); Alkaline Phosphatase 263 U/L (38-126); Anion Gap 15.8 mEq/L (5-15); Aspartate Amino Transferase 332 U/L (17-59); Bilirubin,Total 1.1 mg/dl (0.2-1.3); Blood Urea Nitrogen 6 mg/dl (9-20); Calcium 8.9 mg/dl (8.4-10.2); Carbon Dioxide 29 mmol/L (22.0-30.0); Chloride 100 mmol/L (98-107); Cholesterol 207 mg/dl (140-200); Creatinine,Serum 0.60 mg/dl (0.66-1.25); Estimated Glomerular Filt Rate 141 ml/min (>60); GFR (African American) 171 ML/MIN (>60); Globulin 4.7 g/dL (1.3-3.2); Glucose 114 mg/dl (74-100); HDL Cholesterol 61 mg/dl (40-60); Potassium 3.8 mmoL/L (3.5-5.1); Sodium 141 mmol/L (136-145); Total Protein,Serum 9.2 g/dl (6.3-8.2); Triglycerides 143 mg/dl (30-150)
[2025-03-24 16:23] LABS: Thyroid Stimulating Hormone 2.18 uIU/mL (0.465-4.68)
--- OUTSIDE RECORDS SUMMARY | 2025-03-25 10:45 | XMS_ITS | Patient Health Record ---
Author Organization [facility] Address [address] [place] [address] Care Team Providers Care Sprayer Hand Name Role Phone Dale Valencia [phone] Reason For Referral No Information Problems Problem Type SNOMED Code ICD Code Onset Dates Problem Status W/U Status Risk Notes Problem Closed fracture of lower end of radius (72834220) Other closed fractures of distal end of radius (alone) (813.42) Active confirmed (Tristno) None Plan Of Treatment No Information
--- OUTSIDE RECORDS SUMMARY | 2025-03-25 10:45 | XMS_ITS | Clinical Summary ---
Author Organization [facility] Address [address] [place] [address] Care Team Providers Care Regional Engagement Consultant Name Role Phone Kingsley Aponte MD Primary Care Provider [phone] Allergies Active Allergy Reactions Criticality Noted Date Comments Lisinopril Cough Low 02/03/2023 Medications buprenorphine-na loxone (Suboxone) 8-[address] 1.25 tablets under the tongue 1 (one) time each day. 3 Active cetirizine (ZyrTEC) 10 MG tablet Take 1 tablet (10 mg) by mouth 1 (one) time each day if needed. 3 Active gabapentin (Neurontin) 600 MG tablet Take 1 tablet (600 mg) by mouth 3 (three) times a day with meals. 3 Active clopidogrel (Plavix) 75 MG tabletIndication s:Cerebral aneurysm, nonruptured Take 1 tablet (75 mg) by mouth 1 (one) time each day. 30 tablet 11 3 Active sofosbuvir-velpa tasvir (Epclusa) 400-100 MG tabletIndication s:Hep C w/o coma, chronic Take 1 tablet by mouth 1 (one) time each day. 28 tablet 2 4 Active Additional Information Patient not taking.Reported on 01/07/2024 omeprazole OTC (PriLOSEC OTC) 20 MG EC tablet Take 1 tablet (20 mg) by mouth 1 (one) time each day. Do not crush, chew, or split. Active ibuprofen 200 MG tablet Take 1 tablet (200 mg) by mouth every 6 (six) hours if needed for mild pain. Active metoprolol succinate XL (Toprol-XL) 25 MG 24 hr tablet Take 1 tablet (25 mg) by mouth 1 (one) time each day. 4 Active omeprazole (PriLOSEC) [address] capsule Take 1 capsule (20 mg) by mouth 1 (one) time each day. 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 Immunizations Immunization Administration Dates Next Due Hep A, Adult 05/19/2018 Hep B, adult 05/19/2018 Moderna COVID-19 Vaccine (Diesel Electrician) 12+ years Td (adult) 04/05/2019 Tdap 07/13/2015 Family History Medical History Relation Name Comments Conversions - Other Other Patient denies medical problems Relation Name Status Comments Other Social History Tobacco Use Types Packs/Day Years Used Date Smoking Tobacco: Every Day Cigarettes 0.5 34 Smokeless Tobacco: Never Tobacco Cessation:Ready to Q uit: Not Asked; Counseling Given: Not Answered Comments:Only 6 cigs a day Alcohol Use Standard Drinks/Week Comments Yes 0 (1 standard drink = 0.6 oz pur e alcohol) rarely CAGE ASSESSMENT Answer Date Recorded Due to the following: Medical status 05/20/2023 Maximum number of drinks you had on a given occasion in the last month? 0 drinks 05/20/2023 How many alcoholic Beverages do you typically drink in a week? 0 - 7 per week 05/20/2023 Have you ever felt you should CUT down on your d rinking? 0 05/20/2023 Have you been ANNOYED by peo ple criticizing your drinking? 0 05/20/2023 Have you felt GUILTY about your drinking? 0 05/20/2023 Have you had a drink first t torres in the morning (EYE-INSTRUCTOR PSYCHIATRIC AIDE) to steady your nerves or to get rid of a hangover? 0 05/20/2023 CAGE Questionnaire Score 0 024 Sex and Gender Information Value Date Recorded Sex Assigned at Not on file Legal Sex Male 8:55 PM EDT Gender Identity Not on file Sexual Orientation Not on file Last Filed Vital Signs Vital Sign Reading Time Taken Comments Blood Pressure 138/84 01/07/2024 1:13 PM EDT Pulse 77 01/07/2024 1:13 PM EDT Temperature 36.1 C (97 F) 10/18/2023 1:31 PM EDT Respiratory Rate 12 10/18/2023 5:30 PM EDT Oxygen Saturation 95% 01/07/2024 1:13 PM EDT Inhaled Oxygen Concentration - - Weight 87.7 kg (193 lb 5.5 oz) 01/07/2024 1:13 P M EDT Height 182.9 cm (6') 10/18/2023 1:31 PM EDT Body Mass Index 26.22 10/18/2023 1:31 PM EDT Plan of Treatment Health Maintenance Due Date Last Done Comments [facility]-Depression Screening 1973 [facility]-/Child/Adol SDOH Screenings 1973 [facility]- SDOH Screenings 1991 [facility]-Adult SDOH Screenings 1991 CT Colonography 2018 Colonoscopy 2018 FIT-DNA 2018 FIT 2018 FOBT 2018 Sigmoidoscopy 2018 [facility]-Colorectal Cancer Screening 2018 [facility]-Hepatitis B Vaccines (2 of 3 - 19+ 3-dose series) 06/16/2018 05/19/2018 [facility]-Pneumococcal Vaccine: 50+ Years (1 of 1 - PCV) 2023 [facility]-Zoster Vaccines (1 of 2) 2023 [id number] Vaccine (2 - 2024- season) 2025 11/28/2020 [facility]-Influenza Vaccine (#1) 2025 [facility]-DTaP,Tdap,and Td Vaccines (3 - Td or Tdap) 04/05/2029 04/05/2019, 07/13/2015 [facility]-Hepatitis A Vaccines Aged Out 05/19/2018 No longer eligible based on patient's age to complete this topic [facility]-HIV Screening Completed 02/03/2023, , 05/05/2018 [facility]-Obesity Intervention Completed 024, 10/18/2023, 09/24/2023, Additional history exists HPV Vaccines Aged Out No longer eligi ble based on patient's age to complete this topic [facility]-HIB Vaccines Aged Out No longer e ligible based on patient's age to complete this topic [facility]-IPV Vaccines Aged Out No longer e ligible based on patient's age to complete this topic [facility]-Rotavirus Vaccines Aged Out No lo nger eligible based on patient's age to complete this topic Medical Devices Implanted Type Area Aesthetics Instructor Device Identifier Shelf Expiration Date Model / Serial / Lot Device Embol Pipeline Flex W/Sheild 3.5x12mm - [id number] Implanted:Qty: 1 on 05/20/2023 by Rodney Long MD at [facility] [id number] 03/20/2024 [id number] 50-12 / / [id number] Procedures Procedure Name Priority Date/Time Associated Diagnosis Comments ED HIV 1/2 ANTIBODY/ANTIGEN SCREEN WITH REFLEX TO HIV I/II DIFFERENTIATION STAT 02/03/2023 4:48 PM EDT from Last 3 Months or Most Recently Relevant to Health Maintenance Results * ED HIV 1/2 Antibody/Antigen Screen w/Reflex to HIV 1/2 Differentiation (02/03/2023 4:48 PM EDT) HIV 1 & 2 Antibody/Antigen Screen Non Reactive Non Reactive 02/03/2023 5:46 PM EDT [facility] Comment:Screening for HIV 1 & 2 antibodies, and P24 antigen is NONREACTIVE. No confirmatory testing is required. Blood Venous blood specimen / Unknown Venipuncture / Unknown 02/03/2023 4:48 PM EDT 02/03/2023 5:05 PM EDT us Alexandru Mtz MD LAB BLOOD ORDERABLES Final Res [facility] [address] [place] [address] from Last 3 Months or Most Recently Relevant to Health Maintenance Insurance ANTHEM Advance Directives * Full Code (Latest Code Status on File) Date Activated Date Inactivated Comments 05/19/2023 8:32 PM 05/21/2023 6:50 PM Question Answer Comments Patient has decision-making capacity? Yes Care Teams Regional Engagement Consultant Relationship Specialty Start Date End Date Kingsley Aponte MD [address] [place] [id number] PCP - General 02/03/23
== END 2025-03-24 23:59 ==
LOC: LAB.DROPOF 03-25 10:23
PROVIDERS: PCP Family Medicine; Visit Provider Family Medicine
DX: C61 Malignant neoplasm of prostate (principal); R00.0 Tachycardia, unspecified; I10 Essential (primary) hypertension; R79.89 Other specified abnormal findings of blood chemistry
CPT/HCPCS: 80053; 80061; 84443; 85025; G0103